=== PATIENT | female | born 1960 | race African-American/Black ===

== ENCOUNTER 2025-08-22 14:12 | Inpatient (IN) | payer MEDICARE, OTHER ==
[2025-08-22] VITALS (13 sets, daily range): BP systolic 134–216; BP diastolic 64–103; PULSE 88–103; RESP 11–22; TEMP 36.4–36.418; O2SAT 97–100
[~2025-08-22] VITALS: Ht 162.6 cm; Wt 134.7 kg
[2025-08-22] MEDS: SODIUM CHLORIDE 0.9% 1,000 ML IV ONE ×2 (14:40→16:15)
[2025-08-22 14:49] LABS: HEMATOCRIT. 46.3 % (36.0-48.0); HEMOGLOBIN. 14.5 g/dL (12.0-16.0); MEAN PLATELET VOLUME 12.7 fl (7.4-10.4); PLATELET 150 x1000/uL (130-400); RED BLOOD CELL COUNT 4.78 mill/uL (4.2-5.4); RED CELL DISTRIBUTION WIDTH 15.7 % (11.6-14.6)
[2025-08-22 15:01] LABS: CREATININE 2.0 mg/dL (0.6-1.0)
[2025-08-22 15:02] LABS: UREA NITROGEN BLOOD 17 mg/dL (9-23)
[2025-08-22 15:03] LABS: ASPARTATE AMINOTRANSFERASE 13 IU/L (<34)
[2025-08-22 15:04] LABS: BILIRUBIN DIRECT 0.2 mg/dL (<=3.0); BILIRUBIN TOTAL 0.6 mg/dL (0.1-1.0); PROTEIN TOTAL 7.7 g/dL (6.0-8.3)
[2025-08-22 15:17] LABS: TROPONIN I HIGH SENSITIVITY 188 ng/L (3.0-34)
[2025-08-22] MEDS ORDERED: INSULIN REGULAR (DRIP) 100 UNITS in SODIUM CHLORIDE 0.9% 99 ML IV SCH (15:30)
[2025-08-22] MEDS: INSULIN REGULAR 100U/100ML PMX 100 ML IV SCH ×2 (16:18→23:27)
[2025-08-22 16:19] LABS: LYMPHOCYTES % MANUAL 3.0 % (20.0-60.0); MONOCYTES % MANUAL 7.0 % (2.0-8.0); NEUTROPHILS % MANUAL 90.0 % (45.0-75.0); PLATELET ESTIMATE NORMAL
[2025-08-22 16:42] LABS: BG BASE EXCESS -19.9 mmol/L (-2.0-3.0); BG CARBOXYHEMOGLOBIN 0.7 % (0.5-1.5); BG DEOXYHEMOGLOBIN 2.0 % (0.0-5.0); BG FRACTION INSPIRED OXYGEN 21; BG HCO3 ACT 7.1 mmol/L (21.0-28.0); BG METHEMOGLOBIN 0.3 % (0.5-1.5); BG OXYGEN SATURATION 98.0 % (94.0-98.0); BG OXYHEMOGLOBIN 97.0 % (94.0-98.0); BG PCO2 21.3 mmHg (32.0-45.0); BG PH 7.143 (7.350-7.450); BG PO2 116.9 mmHg (83.0-108.0); BG SAMPLE SITE RIGHT RADIAL; BG TOTAL HEMOGLOBIN 14.9 g/dL (12.0-16.0); BG VENT MODE ROOM AIR
[2025-08-22] MEDS ORDERED: BLOOD SUGAR DIAGNOSTIC STRIP TEST PRN (18:45)
[2025-08-22] MEDS ORDERED: DEXTROSE 50% WATER 50ML SYRINGE IV PRN (18:45)
[2025-08-22] MEDS ORDERED: GUAIFENESIN 200MG/10ML SUGAR FREE UDC PO PRN (18:45)
[2025-08-22] MEDS ORDERED: SODIUM BICARBONATE 8.4% 50MEQ/50ML SYR IV NR (18:45)
[2025-08-22] MEDS ORDERED: ACETAMINOPHEN 325MG TABLET PO PRN (18:45)
[2025-08-22] MEDS ORDERED: IPRATROPIUM/ALBUTEROL 0.5-3(2.5)MG/3ML NEB HHN PRN (18:45)
[2025-08-22] MEDS ORDERED: LORAZEPAM 0.5MG TABLET PO PRN (18:45)
[2025-08-22] MEDS ORDERED: DOCUSATE SODIUM 100MG CAPSULE PO PRN (18:45)
[2025-08-22] MEDS: DEXT 5%/0.9% NACL 1,000 ML IV SCH (19:00)
[2025-08-22] MEDS ORDERED: POTASSIUM CHLORIDE 40 MEQ in SODIUM CHLORIDE 0.9% 250 ML IV PRN (19:00)
[2025-08-22] MEDS ORDERED: INSULIN REGULAR 100U/100ML PMX 100 ML IV SCH (19:00)
[2025-08-22] MEDS: SODIUM CHLORIDE 0.9% 1,000 ML IV SCH (19:43)
[2025-08-22 19:55] LABS: CLARITY URINE CLEAR (CLEAR); COLOR URINE YELLOW (YELLOW); GLUCOSE URINE 3+ (NEGATIVE); KETONES URINE 4+ (NEGATIVE); LEUKOCYTE ESTERASE URINE NEGATIVE (NEGATIVE); NITRITE URINE NEGATIVE (NEGATIVE); OCCULT BLOOD URINE TRACE (NEGATIVE); PH URINE 5.0 (4.5-8.0); PROTEIN URINE TRACE (NEGATIVE); SPECIFIC GRAVITY URINE 1.025 (1.005-1.030); UROBILINOGEN URINE 0.2 E.U./dL (0.2-1.0)
[2025-08-22 20:34] LABS: TRIGLYCERIDE 127.0 mg/dL (0-150)
[2025-08-22 20:35] LABS: LDL CHOLESTEROL 101.0 mg/dL (5-100)
[2025-08-22] MEDS: BLOOD SUGAR DIAGNOSTIC STRIP TEST SCH (21:09)
[2025-08-22 21:39] LABS: BACTERIA URINE NONE SEEN; RBC URINE NONE SEEN /hpf (0-2); SQUAMOUS EPITHELIAL CELL URINE NONE SEEN /lpf (RARE/1+); WBC URINE NONE SEEN /hpf (0-2)
[2025-08-22 21:46] LABS: BG BASE EXCESS -10.7 mmol/L (-2.0-3.0); BG CARBOXYHEMOGLOBIN 1.6 % (0.5-1.5); BG DEOXYHEMOGLOBIN 4.2 % (0.0-5.0); BG HCO3 ACT 13.8 mmol/L (21.0-28.0); BG METHEMOGLOBIN 0.0 % (0.5-1.5); BG OXYGEN SATURATION 95.7 % (94.0-98.0); BG OXYHEMOGLOBIN 94.2 % (94.0-98.0); BG PCO2 27.9 mmHg (32.0-45.0); BG PH 7.313 (7.350-7.450); BG PO2 76.0 mmHg (83.0-108.0); BG SAMPLE SITE RIGHT RADIAL; BG TOTAL HEMOGLOBIN 14.8 g/dL (12.0-16.0); BG VENT MODE ROOM AIR
[2025-08-22] MEDS: HYDRALAZINE 20MG/ML VIAL IV PRN (22:28)
[2025-08-23] VITALS (54 sets, daily range): BP systolic 86–200; BP diastolic 36–95; PULSE 76–113; RESP 12–36; TEMP 36.5–36.7; O2SAT 90–100
[2025-08-23 00:07] LABS: CREATININE 1.4 mg/dL (0.6-1.0); UREA NITROGEN BLOOD 12 mg/dL (9-23)
[2025-08-23 00:09] LABS: CREATINE KINASE MB FRACTION 4.5 ng/mL (0.5-3.6); PHOSPHORUS 1.6 mg/dL (2.5-4.9)
[2025-08-23] MEDS: CLONIDINE 0.1MG TABLET PO PRN (00:16)
[2025-08-23 00:45] LABS: TROPONIN I HIGH SENSITIVITY 216 ng/L (3.0-34)
[2025-08-23] MEDS: KCL 20MEQ/100ML PREMIX 100 ML IV PRN (02:23)
[2025-08-23] MEDS: SODIUM PHOSPHATE 15 MMOL in SODIUM CHLORIDE 0.9% 250 ML IV PRN (03:32)
[2025-08-23 06:24] LABS: TROPONIN I HIGH SENSITIVITY 254 ng/L (3.0-34)
[2025-08-23 06:27] LABS: CREATININE 1.3 mg/dL (0.6-1.0); UREA NITROGEN BLOOD 8 mg/dL (9-23)
[2025-08-23 06:28] LABS: CREATINE KINASE MB FRACTION 3.1 ng/mL (0.5-3.6)
[2025-08-23 06:30] LABS: PHOSPHORUS 1.4 mg/dL (2.5-4.9)
[2025-08-23] MEDS: MAGNESIUM 2 G PREMIX 50 ML IV PRN (07:24)
[2025-08-23] MEDS: INSULIN GLARGINE 100 UNITS/ML SUBCUT SCH ×2 (10:14→21:42)
[2025-08-23 12:19] LABS: TROPONIN I HIGH SENSITIVITY 291 ng/L (3.0-34)
[2025-08-23 12:21] LABS: CREATININE 1.1 mg/dL (0.6-1.0); UREA NITROGEN BLOOD 9 mg/dL (9-23)
[2025-08-23 12:24] LABS: PHOSPHORUS 1.6 mg/dL (2.5-4.9)
[2025-08-23] MEDS ORDERED: DEXTROSE 50% WATER 50ML SYRINGE IV PRN (14:30)
[2025-08-23] MEDS: INSULIN LISPRO 100 UNITS/ML SUBCUT SCH ×2 (15:27→21:41)
[2025-08-23] MEDS: BLOOD SUGAR DIAGNOSTIC STRIP TEST SCH (15:27)
[2025-08-23] MEDS ORDERED: SODIUM CHLORIDE 0.45% 250 ML IV ONE (18:00)
[2025-08-23 18:08] LABS: CREATININE 1.1 mg/dL (0.6-1.0); UREA NITROGEN BLOOD 6 mg/dL (9-23)
[2025-08-23 18:27] LABS: TROPONIN I HIGH SENSITIVITY 323 ng/L (3.0-34)
[2025-08-23] MEDS: PANTOPRAZOLE SODIUM 40 MG/VIAL IV SCH (18:32)
[2025-08-23] MEDS: ENOXAPARIN 40MG/0.4ML SYR SUBCUT SCH (18:32)
[2025-08-23] MEDS: ONDANSETRON HCL 4MG/2ML INJ IV PRN (18:34)
[2025-08-23 18:39] LABS: HEMATOCRIT. 38.7 % (36.0-48.0); HEMOGLOBIN. 12.9 g/dL (12.0-16.0); MEAN PLATELET VOLUME 13.1 fl (7.4-10.4); PLATELET 123 x1000/uL (130-400); RED BLOOD CELL COUNT 4.26 mill/uL (4.2-5.4); RED CELL DISTRIBUTION WIDTH 15.0 % (11.6-14.6)
[2025-08-23 18:53] LABS: BG BASE EXCESS -3.4 mmol/L (-2.0-3.0); BG CARBOXYHEMOGLOBIN 1.3 % (0.5-1.5); BG DEOXYHEMOGLOBIN 8.7 % (0.0-5.0); BG FRACTION INSPIRED OXYGEN 21; BG HCO3 ACT 20.2 mmol/L (21.0-28.0); BG METHEMOGLOBIN 0.1 % (0.5-1.5); BG OXYGEN SATURATION 91.2 % (94.0-98.0); BG OXYHEMOGLOBIN 89.9 % (94.0-98.0); BG PCO2 32.3 mmHg (32.0-45.0); BG PH 7.414 (7.350-7.450); BG PO2 56.9 mmHg (83.0-108.0); BG SAMPLE SITE RIGHT RADIAL; BG TOTAL HEMOGLOBIN 14.0 g/dL (12.0-16.0); BG VENT MODE ROOM AIR
[2025-08-23] MEDS: THIAMINE HCL 200 MG in SODIUM CHLORIDE 0.9% 100 ML IV SCH (21:39)
[2025-08-23] MEDS: DEXT 5%/0.9% NACL 1,000 ML IV SCH (21:39)
[2025-08-24] VITALS (40 sets, daily range): BP systolic 87–190; BP diastolic 46–143; PULSE 72–101; RESP 14–30; TEMP 36.1–36.7; O2SAT 91–99
[2025-08-24 00:22] LABS: LYMPHOCYTES % MANUAL 4.0 % (20.0-60.0); MONOCYTES % MANUAL 7.0 % (2.0-8.0); NEUTROPHILS % MANUAL 89.0 % (45.0-75.0); PLATELET ESTIMATE SLIGHTLY DECREASED
[2025-08-24] MEDS: DEXT 5%/0.45% NACL 1000ML 1,000 ML IV SCH (00:32)
[2025-08-24 01:22] LABS: TROPONIN I HIGH SENSITIVITY 256 ng/L (3.0-34)
[2025-08-24 01:39] LABS: CREATININE 1.0 mg/dL (0.6-1.0); UREA NITROGEN BLOOD < 5 mg/dL (9-23)
[2025-08-24 01:41] LABS: PHOSPHORUS 1.4 mg/dL (2.5-4.9)
[2025-08-24 05:22] LABS: BASOPHILS % 0.7 % (0.0-2.0); EOSINOPHILS % 0.1 % (0.0-5.0); HEMATOCRIT. 37.7 % (36.0-48.0); HEMOGLOBIN. 12.6 g/dL (12.0-16.0); LYMPHOCYTES % 10.1 % (20.0-50.0); MEAN PLATELET VOLUME 12.3 fl (7.4-10.4); MONOCYTES % 10.3 % (2.0-8.0); NEUTROPHILS % 78.8 % (40.0-76.0); PLATELET 112 x1000/uL (130-400); RED BLOOD CELL COUNT 4.18 mill/uL (4.2-5.4); RED CELL DISTRIBUTION WIDTH 15.1 % (11.6-14.6)
[2025-08-24 05:38] LABS: TROPONIN I HIGH SENSITIVITY 285 ng/L (3.0-34)
[2025-08-24 05:43] LABS: CREATININE 0.9 mg/dL (0.6-1.0)
[2025-08-24 05:44] LABS: UREA NITROGEN BLOOD 8 mg/dL (9-23)
[2025-08-24 05:46] LABS: PHOSPHORUS 2.2 mg/dL (2.5-4.9)
[2025-08-24] MEDS ORDERED: POTASSIUM CHLORIDE 40 MEQ in DEXT 5% WATER 230 ML IV ONE (07:15)
[2025-08-24] MEDS: KCL 20MEQ/100ML X 2 FOR TOTAL KCL 40MEQ/200ML IV SCH (08:29)
[2025-08-24 09:19] LABS: FOLIC ACID (FOLATE) SERUM 2.24 ng/mL (>5.38)
[2025-08-24 09:20] LABS: VITAMIN B12 SERUM 1143 pg/mL (211-911)
[2025-08-24] MEDS: FOLIC ACID/VITAMIN B COMP W-C TABLET PO SCH (12:04)
[2025-08-24] MEDS: ACETAMINOPHEN 325MG TABLET PO PRN (13:15)
[2025-08-24] MEDS: LOSARTAN 50 MG TABLET PO SCH (15:06)
[2025-08-24] MEDS: PANTOPRAZOLE SODIUM 40 MG/VIAL IV SCH (15:06)
[2025-08-24] MEDS: INSULIN LISPRO 100 UNITS/ML SUBCUT SCH (17:29)
[2025-08-24] MEDS: METOCLOPRAMIDE HCL 10MG/2ML VIAL IV SCH (18:42)
[2025-08-24] MEDS: INSULIN GLARGINE 100 UNITS/ML SUBCUT SCH (21:55)
[2025-08-24 22:13] LABS: CREATININE 0.8 mg/dL (0.6-1.0); UREA NITROGEN BLOOD < 5 mg/dL (9-23)
[2025-08-25] VITALS: BP 168/74; PULSE 65; RESP 18; TEMP 36.2; O2SAT 97
[2025-08-25] MEDS: POTASSIUM CHLORIDE 20MEQ/PACKET PO NR (00:17)
[2025-08-25 04:00] VITALS: BP 171/83; PULSE 94; RESP 18; TEMP 36.3; O2SAT 98
[2025-08-25 08:30] VITALS: BP 167/78; PULSE 82; RESP 20; TEMP 36.4; O2SAT 100
[2025-08-25 12:30] VITALS: BP 152/81; PULSE 75; RESP 18; TEMP 36.5; O2SAT 100
[2025-08-25 16:00] VITALS: BP 167/93; PULSE 87; RESP 18; TEMP 36.6; O2SAT 98
[2025-08-25 20:00] VITALS: BP 147/59; PULSE 89; RESP 18; TEMP 36.1; O2SAT 98
[2025-08-25] MEDS: POTASSIUM CHLORIDE 20MEQ TABLET SR PO SCH (20:59)
[2025-08-25 22:41] LABS: CREATININE 0.9 mg/dL (0.6-1.0)
[2025-08-25 22:42] LABS: CREATININE 0.9 mg/dL (0.6-1.0); UREA NITROGEN BLOOD 6 mg/dL (9-23); UREA NITROGEN BLOOD 7 mg/dL (9-23)
[2025-08-25 22:50] LABS: PHOSPHORUS 0.9 mg/dL (2.5-4.9)
[2025-08-25] MEDS: KCL 20MEQ/100ML PREMIX 100 ML IV SCH (23:36)
[2025-08-26] VITALS: BP 147/70; PULSE 84; RESP 18; TEMP 36.7; O2SAT 98
[2025-08-26] MEDS: POTASSIUM CHLORIDE 20MEQ TABLET SR PO NR (01:14)
[2025-08-26] MEDS: POTASSIUM PHOSPHATE 15 MMOL in DEXT 5% WATER 245 ML IV NR (01:15)
[2025-08-26 04:00] VITALS: BP 144/67; PULSE 84; RESP 18; TEMP 36.2; O2SAT 100
[2025-08-26 08:01] VITALS: BP 178/88; PULSE 78; RESP 20; TEMP 36.6; O2SAT 98
[2025-08-26 08:25] LABS: BASOPHILS % 0.7 % (0.0-2.0); EOSINOPHILS % 3.4 % (0.0-5.0); HEMATOCRIT. 43.1 % (36.0-48.0); HEMOGLOBIN. 14.3 g/dL (12.0-16.0); LYMPHOCYTES % 20.0 % (20.0-50.0); MONOCYTES % 12.3 % (2.0-8.0); NEUTROPHILS % 63.6 % (40.0-76.0); RED BLOOD CELL COUNT 4.77 mill/uL (4.2-5.4); RED CELL DISTRIBUTION WIDTH 15.0 % (11.6-14.6)
[2025-08-26 08:47] LABS: CREATININE 0.7 mg/dL (0.6-1.0); UREA NITROGEN BLOOD < 5 mg/dL (9-23)
[2025-08-26 08:49] LABS: PHOSPHORUS 1.2 mg/dL (2.5-4.9)
[2025-08-26] MEDS: POTASSIUM PHOSPHATE 30 MMOL in SODIUM CHLORIDE 0.9% 490 ML IV NR (11:37)
[2025-08-26] MEDS: INSULIN GLARGINE 100 UNITS/ML SUBCUT SCH (11:42)
[2025-08-26 12:00] VITALS: BP 158/74; PULSE 85; RESP 20; TEMP 36.4; O2SAT 97
[2025-08-26 15:31] LABS: MEAN PLATELET VOLUME 12.0 fl (7.4-10.4); PLATELET 111 x1000/uL (130-400)
[2025-08-26 16:30] VITALS: BP 154/88; PULSE 92; RESP 18; TEMP 36.6; O2SAT 100
== END 2025-08-26 17:50 | disposition short-term general hospital (02) | DRG 637 ==
LOC: ER 14:12 → MICUSO 16:36 → EDBEDREQ 16:40 → EDBEDREQTM 16:40 → 8WST 08-24 19:28
PROVIDERS: ADMIT Internal Medicine; ATTEND Internal Medicine
DX: E11.10 Type 2 diabetes mellitus with ketoacidosis without coma (principal); G92.8 Other toxic encephalopathy; I21.A1 Myocardial infarction type 2; N17.0 Acute kidney failure with tubular necrosis; I16.1 Hypertensive emergency; G93.40 Encephalopathy, unspecified; E66.9 Obesity, unspecified; E87.3 Alkalosis; E87.0 Hyperosmolality and hypernatremia; Z68.43 Body mass index [BMI] 50.0-59.9, adult; D72.829 Elevated white blood cell count, unspecified; I10 Essential (primary) hypertension; E78.5 Hyperlipidemia, unspecified; Z91.199 Patient's noncompliance with other medical treatment and regimen due to unspecified reason; E86.0 Dehydration; F41.9 Anxiety disorder, unspecified; E87.6 Hypokalemia; E66.01 Morbid (severe) obesity due to excess calories; Z68.39 Body mass index [BMI] 39.0-39.9, adult; Z79.4 Long term (current) use of insulin
CPT/HCPCS: 36415; 36600; 71045; 80048; 80051; 80061; 80076; 81003; 82010; 82375; 82550; 82553; 82607; 82746; 82805; 82962; 83036; 83605; 83735; 83930; 83935; 84100; 84145; 84484; 85025; 93005; 93970; 95816; 96365; 96375; 97162; 97166; 99291; A4606; J0360; J1650; J1815; J2405; J2470; J2765; J3411; J3475; J3480; J3490; J7030; J7040; J7042; J7050; J7060